=== PATIENT | female | born 2000 | race Caucasian/White ===

== ENCOUNTER 2020-06-26 11:01 | Emergency (ER) | payer MEDICAID, SELFPAY ==
[~2020-06-26] VITALS: Ht 152.4 cm; Wt 50.8 kg
[2020-06-26 11:03] VITALS: BP 125/81; Ht 152.4 cm; Wt 50.8 kg
== END 2020-06-26 11:40 | disposition home or self-care (01) ==
LOC: ED 11:01
DX: B34.9 Viral infection, unspecified (principal); J45.909 Unspecified asthma, uncomplicated; Z20.828 Contact with and (suspected) exposure to other viral communicable diseases
CPT/HCPCS: U0003